=== PATIENT | female | born 1990 | race Caucasian/White ===

== ENCOUNTER 2024-04-25 17:36 | Emergency (ER) | payer OTHER ==
[2024-04-25 17:47] VITALS: BP 122/78; PULSE 104; RESP 18; TEMP 98.7; BMI 32.5
[2024-04-25 19:26] LABS: BASO % 0.7 % (0-2.0); EOS % 1.9 % (0-4.5); HEMATOCRIT 40.4 % (32.4-45.2); HEMOGLOBIN 13.6 GM/dL (10.7-15.3); LYMPH % 27.8 % (8-40); MCH 29.6 pg (25.7-33.7); MCHC 33.7 g/dl (32.0-36.0); MEAN CELL VOLUME 87.8 fl (80-96); MEAN PLT VOLUME 9.3 fl (7.5-11.1); MONO % 7.2 % (3.8-10.2); NEUT % 62.4 % (42.8-82.8); PLATELET COUNT 229 10^3/uL (134-434); RDW 13.3 % (11.6-15.6); WHITE BLOOD COUNT 10.9 K/mm3 (4.0-10.0)
[2024-04-25] MEDS: SODIUM CHLORIDE 0.9% 500 ML INFUS.BAG IV ONE (19:45)
[2024-04-25 19:46] LABS: POTASSIUM 3.8 mmol/L (3.5-5.1)
[2024-04-25 19:48] LABS: ALBUMIN 3.8 g/dl (3.4-5.0); BLOOD UREA NITROGEN 10.8 mg/dL (7-18)
[2024-04-25 19:49] LABS: MAGNESIUM 1.8 mg/dL (1.8-2.4)
[2024-04-25 19:52] LABS: CREATININE 0.7 mg/dL (0.55-1.3)
[2024-04-25 19:54] LABS: BILIRUBIN,TOTAL 0.4 mg/dL (0.2-1); TOT PROT 7.3 g/dl (6.4-8.2)
== END 2024-04-25 20:56 | disposition home or self-care (01) ==
LOC: JER 17:36
DX: R00.2 Palpitations (principal); R06.02 Shortness of breath; R42 Dizziness and giddiness; Z20.822 Contact with and (suspected) exposure to COVID-19
CPT/HCPCS: 0241U-QW; 36415; 71046-TC-FY; 80053; 83690; 83735; 84439; 84443; 84484; 84703; 85025; 93005; 93010; 99285-25